=== PATIENT | male | born 1960 | race Caucasian/White ===

== ENCOUNTER 2020-12-22 15:14 | Outpatient (RCR) | payer OTHER, SELFPAY ==
[2020-12-22] MEDS: COVID-19 VACC, MRNA(PFIZER)/PF 30 MCG/0.3 ML SYRINGE IM (16:34)
[2021-01-12] MEDS: COVID-19 VACC, MRNA(PFIZER)/PF 30 MCG/0.3 ML SYRINGE IM (16:07)
== END 2021-03-20 23:59 ==
LOC: IMMUN 15:14
PROVIDERS: PCP Family Medicine; Visit Provider Family Medicine
DX: Z23 Encounter for immunization (principal)
CPT/HCPCS: 0001A; 0002A; 91300

== ENCOUNTER → 2023-11-06 | Outpatient (CLI) | payer BC, SELFPAY ==
[2023-11-06 12:37] LABS: Absolute Lymphocyte Count 3.26 X10^3/uL (0.83-4.51); Absolute Neutrophil Count 3.3 X10^3/uL (2.0-7.7); Basophil# 0.09 X10^3/uL; Basophil% 1.2 % (0-1); Eosinophil# 0.38 X10^3/uL; Eosinophils% 4.9 % (0-5); Hematocrit 48.3 % (40-54); Hemoglobin 16.1 g/dL (13.0-16.5); Lymphocyte # 3.26 X10^3/ul (0.83-4.51); Lymphocyte % 42.2 % (19-41); Mean Corp Hgb Conc 33.3 g/dL (32-36); Mean Platelet Vol. 10.2 fl (6.2-12.0); Monocyte# 0.68 X10^3/uL; Monocyte% 8.8 % (0-10); NRBC Flagged by Analyzer 0 % (0-5); Neutrophil # 3.28 X10^3/uL (2.7-7.7); Neutrophil % 42.5 % (47-70); Platelet Count 237 K/mm3 (150-450); RBC Distribution Width CV 13.9 % (11.6-14.6); RBC Distribution Width SD 44.3 fl (35.1-43.9); Red Blood Count 5.55 M/mm3 (4.6-6.2); White Blood Count 7.7 K/mm3 (4.4-11.0)
[2023-11-06 13:33] LABS: AST(SGOT) 22 U/L (15-37); Alanine Aminotransfer ALT/SGPT 32 U/L (16-61); Albumin, Serum 3.7 g/dL (3.2-5.0); Alkaline Phosphatase 70 U/L (45-117); Anion Gap 5 (5-15); BUN 12 mg/dL (7-18); BUN/Creat Ratio 13.3 RATIO (10-20); Calcium,Total 9.2 mg/dL (8.5-10.1); Chloride 109 mmol/L (98-107); Cholesterol 217 mg/dL (200); EST Glomerular Filtration Rate 90 mL/min (>60); Est Glom Filt Rate - Afr Amer 109 mL/min (>60); Globulin 3.7 g/dL (2.2-4.2); Glucose 110 mg/dL (74-106); High Density Lipoprotein 52 mg/dL; PSA,Total - Annual Screen 0.41 ng/mL (0.00-4.00); Potassium 4.1 mmol/L (3.5-5.1); Protein, Total 7.4 g/dL (6.4-8.2); Sodium Level 140 mmol/L (136-145); T4 Free Direct 0.88 ng/dL (0.76-1.46); Triglycerides 96 mg/dL; Very Low Density Lipoprotein 19 mg/dL (5-40)
== END | disposition home or self-care (01) ==
LOC: BFHLAB 08:33
PROVIDERS: PCP Nurse Practitioner Family; Visit Provider Nurse Practitioner Family
DX: Z00.00 Encounter for general adult medical examination without abnormal findings (principal); Z12.5 Encounter for screening for malignant neoplasm of prostate; E03.9 Hypothyroidism, unspecified
CPT/HCPCS: 36415; 80053; 80061; 84153; 84439; 84443; 85025; G0103

== ENCOUNTER 2023-12-31 06:34 | Day surgery (SDC) | payer BC, SELFPAY ==
[2023-12-31] VITALS (7 sets, daily range): BP systolic 84–144; BP diastolic 58–97; PULSE 65–78; RESP 16; TEMP 36–36.2; O2SAT 92–98; BMI 32.8
[2023-12-31] MEDS: Lactated Ringers 1,000 ML 15 ML IV (06:57)
--- NOTE | 2023-12-31 07:30 | COLBX_PTH ---
PATIENT: KHRIS ENG LOC: EN U#:[id number] AGE/SX: 63/M ROOM: RE12/31/[address]: Dr. David Torres DO : 1960 BED: DIS: 12/31/2023 SPEC #: [id number] RECD: 12/31/23 08:39 STATUS: GILBERTO REAlee #: [id number] NIKOLE: 12/31/23 07:[address]: David Torres DEPT: SURGICAL PATHOLOGY RECD BY: Kathryn Abreu ENTERED: 12/31/23 10:04 SP TYPE: COLON BX OTHR DR: Lise Green, TRIAGE TECHNICIAN-C Tissues: A - Sigmoid colon biopsy B - Ascending colon Procedures: Surgery Specimen Level IV HEADER OPERATION: Colonoscopy- Open access with biopsy and polypectomy PRE-OP DIAGNOSIS: Encounter for screening for malignant neoplasm of colon TISSUE SUBMITTED: A- Sigmoid polyp biopsy, B- Ascending colon polyp MICROSCOPIC DIAGNOSIS A. Sigmoid polyp, biopsy; Hyperplastic polyp. B. Ascending colon polyp, biopsy; Fragments of hyperplastic polyp. / 01/01/2024 MICROSCOPIC DESCRIPTION Slides are reviewed. GROSS DESCRIPTION A. Received in fixative is one container labeled with the patient's name and designated Sigmoid polyp biopsy. The specimen consists of one irregular fragment of light quezada soft tissue that measures 0.3 x 0.3 x 0.1 cm. The specimen is totally submitted in one cassette. B. Received in fixative is one container labeled with the patient's name and designated Ascending colon polyp. The specimen consists of multiple irregular fragments of light quezada soft tissue that in aggregate measure 1.0 x 0.3 x 0.1 cm. The specimen is totally submitted in one cassette. / 12/31/2023 TC:5 CPT: 03520o3
--- NOTE | 2023-12-31 07:59 | HP.PCM_ITS ---
HPI - General General Date of Admission: 12/31/23 Date of Service: 12/31/23 Chief Complaint: Screening colonoscopy HPI Narrative KHRIS ENG, is a 63 M who presents today for screening colonoscopy. He had a colonoscopy approximately 2 years ago. He is not having abdominal pain. He does not have any cramping. He does not have any chest pain shortness of breath. Overall is in very good health. Only medicine he takes on daily basis is levothyroxine for hypothyroidism. [facility] Medical History (Updated 12/29/23 @ 13:13 by Srinivas Louie) Hx of colonic polyps Hypothyroid MVP (mitral valve prolapse) Wears glasses Home Medications levothyroxine 100 mcg tablet (Levoxyl) 100 mcg PO DAILY 12/05/23 [History Last Taken 12/30/23] Allergy/AdvReac Type Severity Reaction Status Date / Time naproxen AdvReac HIGH BP Verified 12/31/23 06:49 Family History (Updated 12/05/23 @ 11:33 by Sybil Fajardo) Sister Cancer Thyroid disorder Mother Thyroid disorder Surgical History History of colonoscopy Hx of vasectomy Social History (Updated 12/05/23 @ 11:34 by Sybil Fajardo) household members: spouse current occupational status: retired Smoking Status: Never smoker alcohol intake: current alcohol intake frequency: 0-2 drinks per day substance use type: does not use ROS Review of Systems ROS Unobtainable: other Constitutional Constitutional: Denies fatigue, fever(s), poor appetite, weight gain or weight loss ENT HEENT: Denies mouth lesions Cardiovascular Cardiovascular: Denies abdominal bloating, abdominal edema or abdominal pain Respiratory/Chest Respiratory/Chest: Denies change in mental status, change in phlegm color, chest congestion or chest tightness Gastrointestinal Gastrointestinal: Denies belching, bloating, change in bowel habits, change in stool character, chewing difficulty, coffee ground emesis, constipation, cramping, diarrhea, dyspepsia, dysphagia, early satiety, excessive flatus, fecal incontinence, heartburn, hematemesis, hematochezia, hemorrhoids, loose stools, melena, nausea, odynophagia, rectal bleeding, tenesmus, vomiting or weight changes Genitourinary Genitourinary: Denies abdominal discomfort, burning urination or itching Musculoskeletal Musculoskeletal: Reports as per HPI; Denies muscle weakness or myalgias Integumentary Integumentary: Denies jaundice Neurologic Neurologic: Denies lack of coordination or weakness Psychiatric Psychiatric: Denies confusion, depression, memory loss, mood swings, paranoia or suicidal ideation Endocrine Endocrinology: Denies systems reviewed and no addt'l complaints, except as documented Hematologic/Lymphatic Hematologic/Lymphatic: Denies anemia, easy bleeding, easy bruising or lymphadenopathy Allergic/Immunologic Allergic/Immunologic: Denies systems reviewed and no addt'l complaints, except as documented Vital Signs Vital Signs Vital Signs: 12/31/23 06:54 12/31/23 06:54 Temperature 96.8 F L Temperature Source Temporal Pulse Rate 77 Respiratory Rate 16 Respiratory Pattern Normal Blood Pressure 144/97 H Blood Pressure Mean 112 Blood Pressure Source Monitor Blood Pressure Position Sitting Blood Pressure Location Left Arm Pulse Ox 98 Oxygen Delivery Method Room Air Weight Weight: 222 lb 10.67 oz Body Mass Index (BMI) 32.8 Physical Exam Const alert General Appearance: cooperative Orientation / Consciousness: oriented to person HEENT hearing grossly normal bilaterally Head and Scalp: normal to inspection Face and Sinus: face symmetric Nose: external nose normal Mouth: oral and palatal mucosa normal Eyes conjunctivae normal General Eye: normal appearance of both eyes Neck full ROM General: normal visual inspection Lymph Lymphatic: no lymphadenopathy noted Chest inspection of chest normal and palpation of chest normal Chest: symmetrical chest wall rise Resp normal respiratory effort Effort and Inspection: able to speak in complete sentences Cardio regular rate GI non-distended Percussion: normal to percussion Rectal Exam: deferred Neuro Speech: speech normal Gait (Neuro): normal gait Assessment & Plan Assessment/Plan (1) Encounter for screening for malignant neoplasm of colon: PLAN: He was explained alternatives, risk, benefits including not withstanding bleeding, infection, sepsis, perforation, need for emergent surgery and . He will have an ASA of 3.
--- NOTE | 2023-12-31 08:25 | OP.CCLET_ITS ---
12/31/2023 Kathe More Re : Colonoscopy procedure for Kelby Mccarty Dear Peter This procedure was performed on Sunday, December 31, 2023. My impressions and recommendations are as follows: Impressions : - Diverticulosis in the recto-sigmoid colon, in the sigmoid colon and in the descending colon. - One 4 mm polyp in the sigmoid colon, removed with a jumbo cold forceps. Resected and retrieved. - One 9 mm polyp in the ascending colon, removed with a hot snare. Resected and retrieved. - Non-bleeding internal hemorrhoids. Recommendations : - Repeat colonoscopy in 5 years for surveillance. - Continue present medications. My findings are described in the full procedure note, which is enclosed. If I can be of further assistance, please feel free to contact me at . Sincerely, David Torres, 12/31/2023 8:24:24 AM This report has been signed electronically.
--- NOTE | 2023-12-31 08:25 | OP.COLON_ITS ---
Patient Name: Kelby Mccarty Procedure Date: 12/31/2023 8:00 AM Date of : 1960 Age: 63 Procedure: Colonoscopy Indications: Screening for colorectal malignant neoplasm Providers: David Torres DO Referring MD: David Torres DO Medicines: Monitored Anesthesia Care Patient Profile: This is a 63 year old male. Refer to note in patient chart for documentation of history and physical. Last Colonoscopy: several years ago. Complications: No immediate complications. Procedure: Pre-Anesthesia Assessment: - Prior to the procedure, a History and Physical was performed, and patient medications and allergies were reviewed. The risks and benefits of the procedure and the sedation options and risks were discussed with the patient. All questions were answered and informed consent was obtained. Patient identification and proposed procedure were verified by the physician. Mental Status Examination: normal. Airway Examination: normal oropharyngeal airway and neck mobility. Prophylactic Antibiotics: The patient does not require prophylactic antibiotics. Prior Anticoagulants: The patient has taken no anticoagulant or antiplatelet agents. After reviewing the risks and benefits, the patient was deemed in satisfactory condition to undergo the procedure. The anesthesia plan was to use monitored anesthesia care (MAC). Immediately prior to administration of medications, the patient was re-assessed for adequacy to receive sedatives. The heart rate, respiratory rate, oxygen saturations, blood pressure, adequacy of pulmonary ventilation, and response to care were monitored throughout the procedure. The physical status of the patient was re-assessed after the procedure. After I obtained informed consent, the scope was passed under direct vision. Throughout the procedure, the patient's blood pressure, pulse, and oxygen saturations were monitored continuously. The colonoscope was introduced through the anus and advanced to the cecum, identified by appendiceal orifice and ileocecal valve. The colonoscopy was performed without difficulty. The patient tolerated the procedure well. The quality of the bowel preparation was adequate. The ileocecal valve, appendiceal orifice, and rectum were photographed. Scope In: 8:10:34 AM Scope Withdrawal Time 0 hours 6 minutes 39 seconds Scope Out: 8:19:45 AM Total Procedure Duration Time 0 hours 9 minutes 11 seconds Findings: The perianal and digital rectal examinations were normal. Multiple small and large-mouthed diverticula were found in the recto-sigmoid colon, sigmoid colon and descending colon. A 4 mm polyp was found in the sigmoid colon. The polyp was sessile. The polyp was removed with a jumbo cold forceps. Resection and retrieval were complete. Verification of patient identification for the specimen was done. Estimated blood loss was minimal. A 9 mm polyp was found in the ascending colon. The polyp was sessile. The polyp was removed with a hot snare. Resection and retrieval were complete. Verification of patient identification for the specimen was done. Estimated blood loss was minimal. Non-bleeding internal hemorrhoids were found during retroflexion. The hemorrhoids were Grade I (internal hemorrhoids that do not prolapse). Impression: - Diverticulosis in the recto-sigmoid colon, in the sigmoid colon and in the descending colon. - One 4 mm polyp in the sigmoid colon, removed with a jumbo cold forceps. Resected and retrieved. - One 9 mm polyp in the ascending colon, removed with a hot snare. Resected and retrieved. - Non-bleeding internal hemorrhoids. Recommendation: - Repeat colonoscopy in 5 years for surveillance. - Continue present medications. Procedure Code(s): --- Professional --- 97527, Colonoscopy, flexible; with removal of tumor(s), polyp(s), or other lesion(s) by snare technique 38334, 59, Colonoscopy, flexible; with biopsy, single or multiple CPT copyright 2021 [employer]. All rights reserved. The codes documented in this report are preliminary and upon tool carrier review may be revised to meet current compliance requirements. David Torres DO 12/31/2023 8:24:24 AM This report has been signed electronically. Number of Addenda: 0 Note Initiated On: 12/31/2023 8:00 AM
== END 2023-12-31 09:17 | disposition home or self-care (01) ==
LOC: EN 06:35 → AC 06:36
PROVIDERS: PCP Nurse Practitioner Family; Referring Provider Nurse Practitioner Family; Visit Provider Internal Medicine Gastroenterology
PROC: 0DJD8ZZ Inspection of Lower Intestinal Tract, Via Natural or Artificial Opening Endoscopic (ICD-10-PCS; CPT 45378; principal; 2023-12-31 07:25)
DX: Z12.11 Encounter for screening for malignant neoplasm of colon (principal); K63.5 Polyp of colon; K64.0 First degree hemorrhoids; K57.30 Diverticulosis of large intestine without perforation or abscess without bleeding; E03.9 Hypothyroidism, unspecified; Z79.899 Other long term (current) drug therapy
CPT/HCPCS: 45385; 45380; 88305; J7120; J2405

== ENCOUNTER 2024-03-10 13:18 | Day surgery (SDC) | payer BC, SELFPAY ==
[2024-03-10] VITALS (12 sets, daily range): BP systolic 84–163; BP diastolic 57–106; PULSE 80–98; RESP 16–18; TEMP 36.1–36.6; O2SAT 90–100; BMI 33.6
--- NOTE | 2024-03-10 14:05 | EDS_ITS ---
HPI History of Present Illness Chief Complaint: Foreign Body Informant: patient Narrative Narrative: 63-year-old male presenting to the emergency department chief complaint of esophageal foreign body. Patient states for the past 2 hours she has had difficulty swallowing any fluid in his secretions. States he was eating a steak and got only a few bites into it when he felt that he gets stuck in his chest. He has never had this happen before. He does not typically get reflux symptoms. He tried some coke at home without success. PFSH PFSH Medical History Wears glasses MVP (mitral valve prolapse) Hypothyroid Hx of colonic polyps Home Medications ?Medication ?Instructions ?Recorded ?Last Taken ?Type levothyroxine 100 mcg tablet 100 mcg PO DAILY 12/05/23 12/30/23 History (Levoxyl) Allergy/AdvReac Type Severity Reaction Status Date / Time naproxen AdvReac HIGH BP Verified 03/10/24 13:22 Family History Sister Cancer Thyroid disorder Mother Thyroid disorder Surgical History Hx of vasectomy History of colonoscopy Social History household members: spouse current occupational status: retired Smoking Status: Never smoker alcohol intake: current alcohol intake frequency: 0-2 drinks per day substance use type: does not use ROS ROS ED Constitutional Constitutional ED: Denies chills, fever(s) or weight loss Eyes Eyes: Denies change in vision or diplopia ENT ENT ED: Denies ear pain, rhinorrhea or sore throat Cardiovascular Cardiovascular: Denies chest pain, orthopnea, palpitations or racing heartbeat Respiratory/Chest Respiratory/Chest: Denies cough, dyspnea or orthopnea Gastrointestinal Gastrointestinal: Reports vomiting and other Details: See history of present illness ; Denies abdominal pain, diarrhea or nausea Genitourinary Genitourinary ED: Denies dysuria, hematuria or urinary frequency Musculoskeletal Musculoskeletal: Denies arthralgias or myalgias Integumentary Denies abscess or rash Neurologic Neurologic: Denies headache(s) or weakness Psychiatric Psychiatric: Denies anxiety, depression, suicidal ideation or suicidal thoughts Endocrine Endocrinology: Denies polydipsia, polyphagia or polyuria Allergic/Immunologic Allergic/Immunologic ED: Denies mouth swelling, tongue swelling or urticaria EXAM Physical Exam Narrative Exam Narrative: 63-year-old male well-appearing. He is pacing the room. He is spitting his secretions into the sink. Const Vital Signs: 03/10/24 13:19 03/10/24 13:42 Temperature 97.1 F L Temperature Source Temporal Pulse Rate 92 Respiratory Rate 16 Respiratory Effort Normal Respiratory Pattern Normal Blood Pressure 163/106 H Blood Pressure Mean 125 Pulse Ox 100 Oxygen Delivery Method Room Air Positive well nourished and well developed General Appearance ED: well developed HEENT Reports normocephalic, head/scalp atraumatic and moist mucous membranes Eyes PERRL and EOMs intact bilaterally Neck no lymphadenopathy, supple and no JVD Resp normal respiratory effort and clear to auscultation bilaterally Cardio regular rate, regular rhythm and no murmurs GI normal to inspection, nondistended, normoactive bowel sounds and non-tender Palpation: soft Back/Spine no CVA tenderness and normal ROM Extremity normal to inspection General Extremety ED: Negative for edema General Extremity: Negative for edema Neuro oriented x3 and CN's II-XII intact bilaterally Sensorium / Orientation: alert Motor Exam: strength 5/5 throughout Psych mental status grossly normal Mood & Affect: Negative for depressed or tearful Skin no rashes or lesions noted and no wounds MDM MDM MDM Narrative Medical decision making narrative: Patient not tolerating Coke. I will speak with gastroenterology. The patient was discussed with Dr. Torres. He recommends Protonix and Ativan. He has had no success in passing the meat impaction. He will be transferred to the OR for endoscopy. History & Record Review Discussion w/independent historian: Patient Management Discussion w/another healthcare provider: [employer] (Dr. Torres (GI)) Discharge Plan Dx/Rx/DC Orders Clinical Impression: Esophageal foreign body Disposition Disposition: Acute Care [facility]
[2024-03-10] MEDS: LORazepam 2 MG/ML Syringe 1 MG IV (14:36)
[2024-03-10] MEDS: Pantoprazole Sodium 40 MG in 0.9% Normal Saline (100mL MB+) 100 ML 330 MG IV (14:37)
--- NOTE | 2024-03-10 15:17 | HP.PCM_ITS ---
History and Physical Date of Admission: 03/10/24 63-year-old male presenting to the emergency department chief complaint of esophageal foreign body. Patient states for the past 2 hours she has had difficulty swallowing any fluid in his secretions. States he was eating a steak and got only a few bites into it when he felt that he gets stuck in his chest. He has never had this happen before. He does not typically get reflux symptoms. He tried some coke at home without success. PFSH PFSH Medical History Wears glasses MVP (mitral valve prolapse) Hypothyroid Hx of colonic polyps Home Medications ?Medication ?Instructions ?Recorded ?Last Taken ?Type levothyroxine 100 mcg tablet 100 mcg PO DAILY 12/05/23 12/30/23 History (Levoxyl) Allergy/AdvReac Type Severity Reaction Status Date / Time naproxen AdvReac HIGH BP Verified 03/10/24 13:22 Family History Sister Cancer Thyroid disorderMother Thyroid disorder Surgical History Hx of vasectomy History of colonoscopy Social History household members: spouse current occupational status: retired Smoking Status: Never smoker alcohol intake: current alcohol intake frequency: 0-2 drinks per day substance use type: does not use ROS ROS ED Constitutional Constitutional ED: Denies chills, fever(s) or weight loss Eyes Eyes: Denies change in vision or diplopia ENT ENT ED: Denies ear pain, rhinorrhea or sore throat Cardiovascular Cardiovascular: Denies chest pain, orthopnea, palpitations or racing heartbeat Respiratory/Chest Respiratory/Chest: Denies cough, dyspnea or orthopnea Gastrointestinal Gastrointestinal: Reports vomiting and other Details: See history of present illness ; Denies abdominal pain, diarrhea or nausea Genitourinary Genitourinary ED: Denies dysuria, hematuria or urinary frequency Musculoskeletal Musculoskeletal: Denies arthralgias or myalgias Integumentary Denies abscess or rash Neurologic Neurologic: Denies headache(s) or weakness Psychiatric Psychiatric: Denies anxiety, depression, suicidal ideation or suicidal thoughts Endocrine Endocrinology: Denies polydipsia, polyphagia or polyuria Allergic/Immunologic Allergic/Immunologic ED: Denies mouth swelling, tongue swelling or urticaria EXAM Physical Exam Narrative Exam Narrative: 63-year-old male well-appearing. He is pacing the room. He is spitting his secretions into the sink. Const Vital Signs: 03/10/2413:19 03/10/2413:42 Temperature 97.1 F L Temperature Source Temporal Pulse Rate 92 Respiratory Rate 16 Respiratory Effort Normal Respiratory Pattern Normal Blood Pressure 163/106 H Blood Pressure Mean 125 Pulse Ox 100 Oxygen Delivery Method Room Air Positive well nourished and well developed General Appearance ED: well developed HEENT Reports normocephalic, head/scalp atraumatic and moist mucous membranes Eyes PERRL and EOMs intact bilaterally Neck no lymphadenopathy, supple and no JVD Resp normal respiratory effort and clear to auscultation bilaterally Cardio regular rate, regular rhythm and no murmurs GI normal to inspection, nondistended, normoactive bowel sounds and non-tender Palpation: soft Back/Spine no CVA tenderness and normal ROM Extremity normal to inspection General Extremety ED: Negative for edema General Extremity: Negative for edema Neuro oriented x3 and CN's II-XII intact bilaterally Sensorium / Orientation: alert Motor Exam: strength 5/5 throughout Psych mental status grossly normal Mood & Affect: Negative for depressed or tearful Skin no rashes or lesions noted and no wounds Assessment & Plan Assessment/Plan (1) Esophageal foreign body: PLAN: He will undergo esophageal foreign body removal. He was explained al ternatives, risk, benefits include not withstanding bleeding, infection, sepsis, perforation, need for emergent urgent . He will have an ASA of 3.
[2024-03-10] MEDS: Lactated Ringers 1,000 ML 15 ML IV (15:53)
--- NOTE | 2024-03-10 16:30 | EGD_PTH ---
PATIENT: KHRIS ENG LOC: [facility] U#:[id number] AGE/SX: 63/M ROOM: RE03/10/[address]: Dr. David Torres DO : 1960 BED: DIS: 03/10/2024 SPEC #: [id number] RECD: 03/10/24 18:05 STATUS: GILBERTO REAlee #: [id number] NIKOLE: 03/10/24 16:[address]: David Torres DEPT: SURGICAL PATHOLOGY RECD BY: Kathryn Abreu ENTERED: 03/11/24 12:13 SP TYPE: EGD BIOPSY OTHR DR: Lise Green, KEYSEATING MACHINE SET UP OPERATOR-C Tissues: Esophagus, NOS Procedures: Special Stain Group I Surgery Specimen Level IV Alcian Blue/PAS (control) HEADER OPERATION: EGD, foreign body removal, biopsy PRE-OP DIAGNOSIS: Esophageal foreign body TISSUE SUBMITTED: Distal esophagus biopsy MICROSCOPIC DIAGNOSIS Distal esophagus, biopsy: Gastroesophageal junctional mucosa with mild chronic inflammation. Reflux esophagitis. No evidence of goblet cell metaplasia. See comment. / 03/12/2024 COMMENT Alcian blue/PAS stain with matched control supports the above diagnosis. MICROSCOPIC DESCRIPTION Slides are reviewed. GROSS DESCRIPTION Received in fixative is one container labeled with the patient's name and designated Distal esophagus biopsy. The specimen consists of multiple irregular fragments of light quezada soft tissue that in aggregate measure 1.0 x 0.2 x 0.1 cm. The specimen is totally submitted in one cassette. AM/ 03/11/2024 TC:3 CPT:55249,15300
--- NOTE | 2024-03-10 16:54 | OP.EGD_ITS ---
Patient Name: Kelby Mccarty Procedure Date: 03/10/2024 4:18 PM Date of : 1960 Age: 63 Procedure: Upper GI endoscopy Indications: Dysphagia Providers: David Torres DO Medicines: Monitored Anesthesia Care Patient Profile: This is a 63 year old male. Refer to note in patient chart for documentation of history and physical. Patient has symptoms of acute dysphagia and dysphagia with both liquids and solids. This patient is seen for evaluation and treatment of confirmed foreign body ingestion. This patient presents with dysphagia. The patient reported this ingestion. The timing of foreign body ingestion was less than 6 hours ago. Complications: No immediate complications. Procedure: Pre-Anesthesia Assessment: - Prior to the procedure, a History and Physical was performed, and patient medications and allergies were reviewed. The patient is competent. The risks and benefits of the procedure and the sedation options and risks were discussed with the patient. All questions were answered and informed consent was obtained. Patient identification and proposed procedure were verified by the physician in the pre-procedure area. Mental Status Examination: alert and oriented. Airway Examination: normal oropharyngeal airway and neck mobility. Respiratory Examination: clear to auscultation. CV Examination: normal. Prophylactic Antibiotics: The patient does not require prophylactic antibiotics. Prior Anticoagulants: The patient has taken no anticoagulant or antiplatelet agents. ASA Grade Assessment: II - A patient with mild systemic disease. After reviewing the risks and benefits, the patient was deemed in satisfactory condition to undergo the procedure. The anesthesia plan was to use monitored anesthesia care (MAC). Immediately prior to administration of medications, the patient was re-assessed for adequacy to receive sedatives. The heart rate, respiratory rate, oxygen saturations, blood pressure, adequacy of pulmonary ventilation, and response to care were monitored throughout the procedure. The physical status of the patient was re-assessed after the procedure. After obtaining informed consent, the endoscope was passed under direct vision. Throughout the procedure, the patient's blood pressure, pulse, and oxygen saturations were monitored continuously. The Endoscope was introduced through the mouth, and advanced to the second part of duodenum. The upper GI endoscopy was accomplished without difficulty. The patient tolerated the procedure well. Scope In: 4:22:16 PM Scope Out: 4:44:35 PM Total Procedure Duration Time 0 hours 22 minutes 19 seconds Findings: Mucosal changes including ringed esophagus, feline appearance, longitudinal furrows, small-caliber esophagus and white plaques were found in the entire esophagus. Biopsies were taken with a cold forceps for histology. Verification of patient identification for the specimen was done. Estimated blood loss was minimal. Food was found in the lower third of the esophagus, 40 cm from the incisors. Removal was accomplished with a Anand net. Verification of patient identification for the specimen was done. Estimated blood loss was minimal. One benign-appearing, intrinsic severe (stenosis; an endoscope cannot pass) stenosis was found 39 to 40 cm from the incisors. The stenosis was traversed after dilation. A guidewire was placed and the scope was withdrawn. Dilation was performed with a Savary dilator with no resistance at 45 Fr. A medium amount of food (residue) was found in the gastric body. No gross lesions were noted in the duodenal bulb. Impression: - Esophageal mucosal changes consistent with eosinophilic esophagitis. Biopsied. - Food was found in the esophagus. Removal was successful. - Benign-appearing esophageal stenosis. Dilated. - A medium amount of food (residue) in the stomach. - No gross lesions in the duodenal bulb. Recommendation: - Discharge patient to home. - Use Protonix (pantoprazole) 40 mg PO BID for 12 weeks. - Continue present medications. Procedure Code(s): --- Professional --- 28438, Esophagogastroduodenoscopy, flexible, transoral; with removal of foreign body(s) 57842, 51, Esophagogastroduodenoscopy, flexible, transoral; with insertion of guide wire followed by passage of dilator(s) through esophagus over guide wire 26673, 59, Esophagogastroduodenoscopy, flexible, transoral; with biopsy, single or multiple CPT copyright 2021 [employer]. All rights reserved. The codes documented in this report are preliminary and upon security officer supervisor review may be revised to meet current compliance requirements. David Torres DO 03/10/2024 4:53:21 PM This report has been signed electronically. Number of Addenda: 0 Note Initiated On: 03/10/2024 4:18 PM
--- NOTE | 2024-03-10 16:54 | OP.CCLET_ITS ---
03/10/2024 Kathe More Re : Upper GI endoscopy procedure for Kelby Mccarty Dear Peter This procedure was performed on Sunday, March 10, 2024. My impressions and recommendations are as follows: Impressions : - Esophageal mucosal changes consistent with eosinophilic esophagitis. Biopsied. - Food was found in the esophagus. Removal was successful. - Benign-appearing esophageal stenosis. Dilated. - A medium amount of food (residue) in the stomach. - No gross lesions in the duodenal bulb. Recommendations : - Discharge patient to home. - Use Protonix (pantoprazole) 40 mg PO BID for 12 weeks. - Continue present medications. My findings are described in the full procedure note, which is enclosed. If I can be of further assistance, please feel free to contact me at . Sincerely, David Torres, 03/10/2024 4:53:21 PM This report has been signed electronically.
[2024-03-10] MEDS: Ipratropium/Albuterol Sulfate 3 ML AMPUL.NEB INHALATION (17:22)
--- NOTE | 2024-03-10 17:40 | RAD_ITS ---
STUDY: X-RAY CHEST REASON FOR EXAM: Male, 63 years old. HYPOXIA TECHNIQUE: PA and lateral views of the chest. COMPARISON: None. FINDINGS: There are monitoring devices. There are mild right perihilar and lower lung increased opacities. There is no demonstrated pleural abnormality. Normal size heart. Normal mediastinum and kvng. Normal visualized pulmonary arteries. Normal visualized aortic arch and descending thoracic aorta. Normal visualized thoracic spine. Normal visualized ribs, clavicles, and shoulders. There is no demonstrated abnormality of the visualized soft tissue structures of the upper abdomen. RAD/Chest PA and Lateral IMPRESSION: Right perihilar and lower lung infiltrate or edema. Electronically Signed: Pieter Ridley MD at 18:54 EDT ,
== END 2024-03-10 19:09 | disposition home or self-care (01) ==
LOC: ED 14:41 → SDC 15:08 → ACINP 15:09
PROVIDERS: Emergency Provider Emergency Medicine; PCP Nurse Practitioner Family; Visit Provider Internal Medicine Gastroenterology
PROC: 0DJ08ZZ Inspection of Upper Intestinal Tract, Via Natural or Artificial Opening Endoscopic (ICD-10-PCS; CPT 43235; principal; 2024-03-10 16:25)
DX: T18.128A Food in esophagus causing other injury, initial encounter (principal); K22.2 Esophageal obstruction; E03.9 Hypothyroidism, unspecified; Z79.890 Hormone replacement therapy; W44.F3XA Food entering into or through a natural orifice, initial encounter; K21.00 Gastro-esophageal reflux disease with esophagitis, without bleeding
CPT/HCPCS: 43247; 43248; 43239; 71046; 88305; 88312; 99284; A4216; J2405

== ENCOUNTER 2024-04-05 08:27 | Day surgery (SDC) | payer BC, SELFPAY ==
[2024-04-05] VITALS (7 sets, daily range): BP systolic 115–130; BP diastolic 83–86; PULSE 63–79; RESP 16–18; TEMP 36.2–36.8; O2SAT 95–99; BMI 32.4
[2024-04-05] MEDS: Lactated Ringers 1,000 ML 15 ML IV (08:59)
--- NOTE | 2024-04-05 09:20 | PCM.PRE.AN2 ---
ASA Classification* ASA Classification ASA Classification: 2 Assessment & Plan Anesthesia* Anesthesia Assessment Anesthesia Assessment: Discussed sedation and/or anesthesia options, risks, benefits, and alternatives with patient/parents/legal guardian/POA. Questions invited. The patient/parents/legal guardian/POA seems to understand and agrees to proceed with anesthesia plan. Reviewed the physical assessment, medical history, allergy history and patient home medications list prior to surgery/procedure/anesthetic and documented any changes. Performed airway and anesthesia risk assessments. 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 When Was Last Pacemaker Check QUESTION #4 FULL TEXT: You/Your Family Experience fever (hyperthermia) with Anesthesia Last Oral Intake Last Oral intake: Last Oral Intake NPO since 00:00 04/05/24 08:55 Meds taken in AM with sips of Yes 04/05/24 08:55 water? Meds patient instructed to take am of surgery PONV PONV - manpower development specialist manager: PONV - manpower development specialist manager Female No 03/30/24 14:36 HX of Motion Sickness No 03/30/24 14:36 HX of N/V After Surgery No 03/30/24 14:36 Non-Smoker Yes 03/30/24 14:36 Duration of Surgery greater No 03/30/24 14:36 than 60 minutes Number of Risk Factors 1 03/30/24 14:36 PONV Score Low Risk 03/30/24 14:36 Height & Weight Height & Weight: Anesthesia: Height & Weight Height 5 ft 9 in 04/05/24 08:55 Weight: 99.7 kg 04/05/24 08:55 Body Mass Index (BMI) 32.4 04/05/24 08:55 Respiratory Assessment Respiratory Assessment - manpower development specialist manager: Respiratory Tract Infection Hx - manpower development specialist manager Hx Respiratory Tract Infection No 03/30/24 14:36 STOP Sleep Apnea STOP Sleep Apnea - manpower development specialist manager: STOP Sleep Apnea - manpower development specialist manager Hx Hypertension No 03/30/24 14:36 Hx Sleep Apnea No 03/30/24 14:36 CPAP BIPAP Do you snore loudly (louder Yes 03/30/24 14:36 than talking or can be heard Do you often feel tired/ No 03/30/24 14:36 fatigued/ sleepy during daytime? Has anyone observed you stop No 03/30/24 14:36 breathing during sleep? STOP Results Negative 03/30/24 14:36 QUESTION #5 FULL TEXT : Do you snore loudly (louder than talking or can be heard through closed doors)? 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 Specify any problems Hx of Preganancy in last 3 N/A 03/30/24 14:36 Months Nurse Filling Out Transfusion VCHRISTIN 03/30/24 14:36 & Questions: Date: 03/30/24 03/30/24 14:36 Time: 14:38 03/30/24 14:36 Patient unable to answer at this time (ie. confused, unrespo /Reproduction History /Reproductive History - manpower development specialist manager: /Reproductive Hx- manpower development specialist manager Hx Now Gestational Age (in weeks): EDC: Hx Hx Para Hx Section SAB No 03/30/24 14:36 Active Medications Active Medications: Current Medications Generic Name Dose Route Start Last Admin Trade Name Freq PRN Reason Stop Dose Admin Lactated Ringer's 1,000 mls @ 15 mls/hr 04/05/24 09:00 04/05/24 08:59 IV 15 mls/hr .Q48H [place] Administration Anesthesia Focused Assessment* Temperature: 97.2 F Pulse Rate: 63 Blood Pressure: 130/86 Respiratory Rate: 16 Pulse Ox: 99 Oxygen Delivery Method: Room Air Airway Assessment Mouth opens: >3 cm Mallampati Score: IV Teeth Condition: Caps/Crowns (All tight) Neck Range of motion (ROM): Full ROM Focused Labs Anesthesia Preop lab: CBC WBC 7.7 K/mm3 (4.4-11.0) 11/06/23 08:33 RBC 5.55 M/mm3 (4.6-6.2) 11/06/23 08:33 Hgb 16.1 g/dL (13.0-16.5) 11/06/23 08:33 Hct 48.3 % (40-54) 11/06/23 08:33 Plt Count 237 K/mm3 (150-450) 11/06/23 08:33 CHEMISTRY Potassium 4.1 mmol/L (3.5-5.1) 11/06/23 08:33 Sodium 140 mmol/L (136-145) 11/06/23 08:33 BUN 12 mg/dL (7-18) 11/06/23 08:33 Creatinine 0.90 mg/dL (0.70-1.30) 11/06/23 08:33 Glucose 110 mg/dL (74-106) H 11/06/23 08:33 TSH 2.40 uIU/mL (0.358-3.74) 11/06/23 08:33 COAG Review of Systems (Anesthesia) ROS Narrative System reviewed and no additional complaints, except as documented. [facility] Medical History Alcohol use Injury of head and neck Gastric reflux Non-smoker History of stress test Wears glasses MVP (mitral valve prolapse) Hypothyroid Hx of colonic polyps Home Medications ?Medication ?Instructions ?Recorded ?Last Taken ?Type levothyroxine 100 mcg tablet 100 mcg PO DAILY 12/05/23 04/05/24 History (Levoxyl) esomeprazole magnesium 40 mg 40 mg PO DAILY #30 caps 03/18/24 04/04/24 Rx capsule,delayed release Allergy/AdvReac Type Severity Reaction Status Date / Time pantoprazole Allergy Intermediate Other Verified 04/05/24 08:53 naproxen AdvReac HIGH BP Verified 04/05/24 08:53 Family History Sister Cancer Thyroid disorder Mother Thyroid disorder Surgical History Hx of esophagogastroduodenoscopy Hx of vasectomy History of colonoscopy Social History household members: spouse current occupational status: retired Smoking Status: Never smoker alcohol intake: current alcohol intake frequency: 0-2 drinks per day substance use type: does not use Addt'l Information Additional Findings: The patient had decreased saturations post the last EGD. Achest Xray performed was negative. Patient was able to go home the same day.
--- NOTE | 2024-04-05 09:30 | EGD_PTH ---
PATIENT: KHRIS ENG LOC: EN U#:[id number] AGE/SX: 63/M ROOM: RE04/05/[address]: Dr. David Trores DO : 1960 BED: DIS: 04/05/2024 SPEC #: [id number] RECD: 04/05/24 11:30 STATUS: GILBERTO REAlee #: [id number] NIKOLE: 04/05/24 09:[address]: David Torres DEPT: SURGICAL PATHOLOGY RECD BY: Kathryn Abreu ENTERED: 04/05/24 11:45 SP TYPE: EGD BIOPSY OTHR DR: Lise Green, FINANCIAL WELLNESS COACH-C Tissues: A - Esophagus, NOS B - Esophagus, NOS Procedures: Special Stain Group I Surgery Specimen Level IV Alcian Blue/PAS (control) HEADER OPERATION: EGD with biopsy and dilatation PRE-OP DIAGNOSIS: Dysphagia TISSUE SUBMITTED: A- Distal esophagus biopsy, B- Mid esophagus biopsy MICROSCOPIC DIAGNOSIS A. Distal esophagus, biopsy: Fragments of gastric mucosa with chronic inflammation. Intestinal metaplasia (goblet cell metaplasia) not identified. See comment. B. Mid esophagus, biopsy: Fragments of benign squamous mucosa. See comment. URIEL/ 04/06/2024 COMMENT A. Alcian blue/PAS stain with matched control is used in the evaluation of the specimen. B. A minute fragment of benign gastric epithelium is also noted. MICROSCOPIC DESCRIPTION Slides are reviewed. GROSS DESCRIPTION A. Received in fixative is one container labeled with the patient's name and designated Distal esophagus biopsy. The specimen consists of two irregular fragments of light quezada soft tissue that in aggregate measure 0.6 x 0.3 x 0.1 cm. The specimen is totally submitted in one cassette. B. Received in fixative is one container labeled with the patient's name and designated Mid esophagus biopsy. The specimen consists of multiple irregular fragments of light quezada soft tissue that in aggregate measure 1.0 x 0.2 x 0.1 cm. The specimen is totally submitted in one cassette. URIEL/ 04/05/2024 TC:3 CPT:82481r6,02807
--- NOTE | 2024-04-05 09:53 | HP.PCM_ITS ---
HPI - General General Date of Admission: 04/05/24 Date of Service: 04/05/24 Chief Complaint: Dysphagia HPI Narrative KHRIS ENG, is a 63-year-old male presented to the emergency department chief complaint of esophageal foreign body. Patient states for the past 2 hours she has had difficulty swallowing any fluid in his secretions. States he was eating a steak and got only a few bites into it when he felt that he gets stuck in his chest. He has never had this happen before. He does not typically get reflux symptoms. He tried some coke at home without success. He underwent an upper endoscopy: Findings: Mucosal changes including ringed esophagus, feline appearance, longitudinal furrows, small-caliber esophagus and white plaques were found in the entire esophagus. Biopsies were taken with a cold forceps for histology. Verification of patient identification for the specimen was done. Estimated blood loss was minimal. Food was found in the lower third of the esophagus, 40 cm from the incisors. Removal was accomplished with a Anand net. Verification of patient identification for the specimen was done. Estimated blood loss was minimal. One benign-appearing, intrinsic severe (stenosis; an endoscope cannot pass) stenosis was found 39 to 40 cm from the incisors. The stenosis was traversed after dilation. A guidewire was placed and the scope was withdrawn. Dilation was performed with a Savary dilator with no resistance at 45 Fr. A medium amount of food (residue) was found in the gastric body. No gross lesions were noted in the duodenal bulb. Impression: - Esophageal mucosal changes consistent with eosinophilic esophagitis. Biopsied. - Food was found in the esophagus. Removal was successful. - Benign-appearing esophageal stenosis. Dilated. - A medium amount of food (residue) in the stomach. - No gross lesions in the duodenal bulb. Recommendation: - Discharge patient to home. - Use Protonix (pantoprazole) 40 mg PO BID for 12 weeks. - Continue present medications. [facility] Medical History Alcohol use Injury of head and neck Gastric reflux Non-smoker History of stress test Wears glasses MVP (mitral valve prolapse) Hypothyroid Hx of colonic polyps Home Medications ?Medication ?Instructions ?Recorded ?Last Taken ?Type levothyroxine 100 mcg tablet 100 mcg PO DAILY 12/05/23 04/05/24 History (Levoxyl) esomeprazole magnesium 40 mg 40 mg PO DAILY #30 caps 03/18/24 04/04/24 Rx capsule,delayed release Allergy/AdvReac Type Severity Reaction Status Date / Time pantoprazole Allergy Intermediate Other Verified 04/05/24 08:53 naproxen AdvReac HIGH BP Verified 04/05/24 08:53 Family History Sister Cancer Thyroid disorder Mother Thyroid disorder Surgical History Hx of esophagogastroduodenoscopy Hx of vasectomy History of colonoscopy Social History household members: spouse current occupational status: retired Smoking Status: Never smoker alcohol intake: current alcohol intake frequency: 0-2 drinks per day substance use type: does not use ROS Review of Systems ROS Unobtainable: other Constitutional Constitutional: Denies fatigue, fever(s), poor appetite, weight gain or weight loss ENT HEENT: Denies mouth lesions Cardiovascular Cardiovascular: Denies abdominal bloating, abdominal edema or abdominal pain Respiratory/Chest Respiratory/Chest: Denies change in mental status, change in phlegm color, chest congestion or chest tightness Gastrointestinal Gastrointestinal: Denies belching, bloating, change in bowel habits, change in stool character, chewing difficulty, coffee ground emesis, constipation, cramping, diarrhea, dyspepsia, dysphagia, early satiety, excessive flatus, fecal incontinence, heartburn, hematemesis, hematochezia, hemorrhoids, loose stools, melena, nausea, odynophagia, rectal bleeding, tenesmus, vomiting or weight changes Genitourinary Genitourinary: Denies abdominal discomfort, burning urination or itching Musculoskeletal Musculoskeletal: Reports as per HPI; Denies muscle weakness or myalgias Integumentary Integumentary: Denies jaundice Neurologic Neurologic: Denies lack of coordination or weakness Psychiatric Psychiatric: Denies confusion, depression, memory loss, mood swings, paranoia or suicidal ideation Endocrine Endocrinology: Denies systems reviewed and no addt'l complaints, except as documented Hematologic/Lymphatic Hematologic/Lymphatic: Denies anemia, easy bleeding, easy bruising or lymphadenopathy Allergic/Immunologic Allergic/Immunologic: Denies systems reviewed and no addt'l complaints, except as documented Vital Signs Vital Signs Vital Signs: 04/05/24 08:55 04/05/24 08:55 04/05/24 09:31 Temperature 97.2 F L 97.2 F L Temperature Source Temporal Pulse Rate 63 63 Respiratory Rate 16 16 Respiratory Pattern Normal Blood Pressure 130/86 H 130/86 H Blood Pressure Mean 100 Blood Pressure Source Monitor Blood Pressure Position Semi-Fowlers Blood Pressure Location Left Arm Pulse Ox 99 99 Oxygen Delivery Method Room Air Room Air Weight Weight: 219 lb 12.8 oz Body Mass Index (BMI) 32.4 Physical Exam Const alert General Appearance: cooperative Orientation / Consciousness: oriented to person HEENT hearing grossly normal bilaterally Head and Scalp: normal to inspection Face and Sinus: face symmetric Nose: external nose normal Mouth: oral and palatal mucosa normal Eyes conjunctivae normal General Eye: normal appearance of both eyes Neck full ROM General: normal visual inspection Lymph Lymphatic: no lymphadenopathy noted Chest inspection of chest normal and palpation of chest normal Chest: symmetrical chest wall rise Resp normal respiratory effort Effort and Inspection: able to speak in complete sentences Cardio regular rate GI non-distended Percussion: normal to percussion Rectal Exam: deferred Neuro Speech: speech normal Gait (Neuro): normal gait Assessment & Plan Assessment/Plan (1) Esophageal foreign body: PLAN: He will undergo a surveillance upper endoscopy. He was explained alternatives, risk, benefits include not withstanding bleeding, infection, sepsis, perforation, need for emergent urgent . He will have an ASA of 3.
--- NOTE | 2024-04-05 10:17 | OP.EGD_ITS ---
Patient Name: Kelby Mccarty Procedure Date: 04/05/2024 9:58 AM Date of : 1960 Age: 63 Procedure: Upper GI endoscopy Indications: Dysphagia, Heartburn Providers: David Torres DO Medicines: Monitored Anesthesia Care Patient Profile: This is a 63 year old male. Refer to note in patient chart for documentation of history and physical. Patient has symptoms of chronic dysphagia and chronic heartburn. Complications: No immediate complications. Procedure: Pre-Anesthesia Assessment: - Prior to the procedure, a History and Physical was performed, and patient medications and allergies were reviewed. The patient is competent. The risks and benefits of the procedure and the sedation options and risks were discussed with the patient. All questions were answered and informed consent was obtained. Patient identification and proposed procedure were verified by the physician. Mental Status Examination: alert and oriented. Airway Examination: normal oropharyngeal airway and neck mobility. CV Examination: normal. Prophylactic Antibiotics: The patient does not require prophylactic antibiotics. Prior Anticoagulants: The patient has taken no anticoagulant or antiplatelet agents. After reviewing the risks and benefits, the patient was deemed in satisfactory condition to undergo the procedure. The anesthesia plan was to use monitored anesthesia care (MAC). Immediately prior to administration of medications, the patient was re-assessed for adequacy to receive sedatives. The heart rate, respiratory rate, oxygen saturations, blood pressure, adequacy of pulmonary ventilation, and response to care were monitored throughout the procedure. The physical status of the patient was re-assessed after the procedure. After obtaining informed consent, the endoscope was passed under direct vision. Throughout the procedure, the patient's blood pressure, pulse, and oxygen saturations were monitored continuously. The gastroscope was introduced through the mouth, and advanced to the second part of duodenum. The upper GI endoscopy was accomplished without difficulty. The patient tolerated the procedure well. Scope In: 10:04:38 AM Scope Out: 10:09:47 AM Total Procedure Duration Time 0 hours 5 minutes 9 seconds Findings: Mucosal changes including ringed esophagus, feline appearance, longitudinal furrows and small-caliber esophagus were found in the upper third of the esophagus and in the middle third of the esophagus. Biopsies were obtained from the proximal and distal esophagus with cold forceps for histology of suspected eosinophilic esophagitis. Verification of patient identification for the specimen was done. The Z-line was irregular and was found 40 cm from the incisors. Biopsies were taken with a cold forceps for histology. Verification of patient identification for the specimen was done. Estimated blood loss was minimal. One benign-appearing, intrinsic moderate (circumferential scarring or stenosis; an endoscope may pass) stenosis was found 25 to 29 cm from the incisors. This stenosis measured 4 cm (in length). The stenosis was traversed. A guidewire was placed and the scope was withdrawn. Dilation was performed with a Savary dilator with no resistance at 60 Fr. The dilation site was examined and showed moderate mucosal disruption. Estimated blood loss was minimal. No gross lesions were noted in the entire examined stomach. The first portion of the duodenum was normal. Impression: - Esophageal mucosal changes secondary to eosinophilic esophagitis. - Z-line irregular, 40 cm from the incisors. Biopsied. - Benign-appearing esophageal stenosis. Dilated. - No gross lesions in the entire stomach. - Normal first portion of the duodenum. - Biopsies were taken with a cold forceps for evaluation of eosinophilic esophagitis. Recommendation: - Discharge patient to home. - Resume previous diet. - Continue present medications. Procedure Code(s): --- Professional --- 72685, Esophagogastroduodenoscopy, flexible, transoral; with insertion of guide wire followed by passage of dilator(s) through esophagus over guide wire 16946, 59,51, Esophagogastroduodenoscopy, flexible, transoral; with biopsy, single or multiple CPT copyright 2021 [employer]. All rights reserved. The codes documented in this report are preliminary and upon loss prevention and safety manager review may be revised to meet current compliance requirements. David Torres DO 04/05/2024 10:16:23 AM This report has been signed electronically. Number of Addenda: 0 Note Initiated On: 04/05/2024 9:58 AM
--- NOTE | 2024-04-05 10:17 | PCM.POST.ANE ---
Anesthesia: Postop Eval I Current Vital Signs Temperature: 98.2 F Pulse Rate: 79 Blood Pressure: 125/86 Respiratory Rate: 18 Pulse Ox: 97 Oxygen Delivery Method: Room Air Assessment Airway patent: Yes Spontaneous unlabored respirations: Yes Mental status: Asleep nausea: No Vomiting: No Anesthesia Complication: No Fluid Hydration Crystalloid volume administer (ml): 400 Total IV fluid infused: 400 Progress Note Anesthesia document: Postop Eval 1 completed: Yes
--- NOTE | 2024-04-05 10:17 | OP.CCLET_ITS ---
04/05/2024 Kathe More Re : Upper GI endoscopy procedure for Kelby Mccarty Dear Peter This procedure was performed on Friday, April 05, 2024. My impressions and recommendations are as follows: Impressions : - Esophageal mucosal changes secondary to eosinophilic esophagitis. - Z-line irregular, 40 cm from the incisors. Biopsied. - Benign-appearing esophageal stenosis. Dilated. - No gross lesions in the entire stomach. - Normal first portion of the duodenum. - Biopsies were taken with a cold forceps for evaluation of eosinophilic esophagitis. Recommendations : - Discharge patient to home. - Resume previous diet. - Continue present medications. My findings are described in the full procedure note, which is enclosed. If I can be of further assistance, please feel free to contact me at . Sincerely, David Torres, 04/05/2024 10:16:23 AM This report has been signed electronically.
--- NOTE | 2024-04-05 13:15 | PCM.POSTANE2 ---
Anesthesia Postop Eval I Sum Postop Eval Completion status Anesthesia document: Postop Eval 1 completed: Yes Anesthesia Postop Eval I Summary Anesthesia Postop Eval I Summary: Anesthesia Postop Eval I: Assessment Summary Airway patent Yes 04/05/24 10:22 [email or web address] Spontaneous unlabored Yes 04/05/24 10:22 [email or web address] respirations Mental status Asleep 04/05/24 10:22 [email or web address] nausea No 04/05/24 10:22 [email or web address] Vomiting No 04/05/24 10:22 [email or web address] Anesthesia Postop Eval I: Fluid Summary Crystalloid volume administer 400 04/05/24 10:22 [email or web address] (ml) Colloids volume administered ( ml) Blood Product volume administered (ml) Total IV fluid infused 400 04/05/24 10:22 [email or web address] Anesthesia Postop Eval I: Summary Notes Anesthesia Complication No 04/05/24 10:22 [email or web address] Anesthesia Complication Comment: Post-operative progress note Anesthesia: Postop Eval II Evaluation Mental status: Awake and Calm Pain Level: 0 nausea: No Vomiting: No Complications Anesthesia Complication: No
== END 2024-04-05 10:50 | disposition home or self-care (01) ==
LOC: EN 08:30 → AC 08:31
PROVIDERS: PCP Nurse Practitioner Family; Referring Provider Nurse Practitioner Family; Visit Provider Internal Medicine Gastroenterology
PROC: 0DJ08ZZ Inspection of Upper Intestinal Tract, Via Natural or Artificial Opening Endoscopic (ICD-10-PCS; CPT 43235; principal; 2024-04-05 09:25)
DX: R13.10 Dysphagia, unspecified (principal); K20.0 Eosinophilic esophagitis; K22.89 Other specified disease of esophagus; E03.9 Hypothyroidism, unspecified; Z79.899 Other long term (current) drug therapy; K21.9 Gastro-esophageal reflux disease without esophagitis
CPT/HCPCS: 43248; 43239; 88305; 88312; J7120; C1769; J2405

== ENCOUNTER → 2024-12-08 | Outpatient (CLI) | payer MEDICARE, OTHER, SELFPAY ==
[2024-12-08 12:24] LABS: Absolute Lymphocyte Count 2.69 X10^3/uL (0.83-4.51); Absolute Neutrophil Count 3.8 X10^3/uL (2.0-7.7); Basophil# 0.06 X10^3/uL; Basophil% 0.8 % (0-1); Eosinophil# 0.26 X10^3/uL; Eosinophils% 3.5 % (0-5); Hematocrit 47.2 % (40-54); Hemoglobin 15.9 g/dL (13.0-16.5); Lymphocyte # 2.69 X10^3/ul (0.83-4.51); Lymphocyte % 36.1 % (19-41); Mean Corp Hgb Conc 33.7 g/dL (32-36); Mean Corpuscular Hgb 29.1 pg (27.0-32.0); Mean Corpuscular Volume 86.3 fL (80-94); Monocyte# 0.65 X10^3/uL; Monocyte% 8.7 % (0-10); NRBC Flagged by Analyzer 0 % (0-5); Neutrophil # 3.77 X10^3/uL (2.7-7.7); Neutrophil % 50.6 % (47-70); Platelet Count 233 K/mm3 (150-450); RBC Distribution Width CV 13.6 % (11.6-14.6); RBC Distribution Width SD 42.9 fl (35.1-43.9); Red Blood Count 5.47 M/mm3 (4.6-6.2); White Blood Count 7.5 K/mm3 (4.4-11.0)
[2024-12-08 12:57] LABS: ALB/GLOB Ratio 1.5 RATIO (0.9-2.4); AST(SGOT) 32 U/L (<=37); Alanine Aminotransfer ALT/SGPT 34 U/L (<=46); Albumin, Serum 4.4 g/dL (3.4-4.8); Alkaline Phosphatase 66 U/L (40-129); Anion Gap 11 (5-15); BUN 12 mg/dL (4-19); BUN/Creat Ratio 13.8 RATIO (10-20); Calcium 9.4 mg/dL (7.6-11.0); Carbon Dioxide 25.5 mmol/L (22.0-29.0); Chloride 104 mmol/L (96-108); Cholesterol 214 mg/dL (<=200); Creatinine, Serum 0.9 mg/dL (0.8-1.3); EST Glomerular Filtration Rate 96 (>60); Globulin 2.8 g/dL (2.2-4.2); Glucose 93 mg/dL (70-99); High Density Lipoprotein 51 mg/dL; Low Density Lipoprotein Calc. 141 mg/dL; Potassium 3.8 mmol/L (3.3-5.1); Protein, Total 7.2 g/dL (5.9-8.4); Sodium Level 140 mmol/L (133-145); Total Bilirubin 0.63 mg/dL (0.00-1.30); Triglycerides 109 mg/dL; Very Low Density Lipoprotein 22 mg/dL (5-40); cholesterol:hdl ratio screen 4.17
== END | disposition home or self-care (01) ==
LOC: BFHLAB 09:12
PROVIDERS: PCP Nurse Practitioner Family; Visit Provider Nurse Practitioner Family
DX: I10 Essential (primary) hypertension (principal); E03.9 Hypothyroidism, unspecified; E78.5 Hyperlipidemia, unspecified; Z12.5 Encounter for screening for malignant neoplasm of prostate
CPT/HCPCS: 36415; 80053; 80061; 84153; 84439; 84443; 85025; G0103